=== PATIENT | female | born 1995 | race Caucasian/White ===

== ENCOUNTER 2022-04-15 13:35 | Emergency (ER) | payer BC, OTHER ==
[2022-04-15 15:18] VITALS: BP 116/69; PULSE 71
== END 2022-04-15 15:51 | disposition home or self-care (01) ==
LOC: JP.ED 13:35
DX: L23.7 Allergic contact dermatitis due to plants, except food (principal); F41.9 Anxiety disorder, unspecified; F31.9 Bipolar disorder, unspecified; Z79.899 Other long term (current) drug therapy; Z91.018 Allergy to other foods
CPT/HCPCS: 99281; 99283

== ENCOUNTER 2025-07-14 08:21 | Emergency (ER) | payer MEDICAID, OTHER ==
[2025-07-14 08:42] VITALS: BP 133/83; PULSE 76
== END 2025-07-14 09:14 | disposition home or self-care (01) ==
LOC: JP.ED 08:21
DX: R21 Rash and other nonspecific skin eruption (principal); J45.909 Unspecified asthma, uncomplicated; Z91.018 Allergy to other foods; Z79.899 Other long term (current) drug therapy
CPT/HCPCS: 99282